=== PATIENT | male | born 1965 | race Caucasian/White ===

== ENCOUNTER 2017-04-28 07:58 | Day surgery (SDC) | payer OTHER ==
[2017-04-27 11:12] VITALS: BMI 28.1
[2017-04-28] MEDS ORDERED: PROPOFOL 20 ML ONE ×2 (08:32)
[2017-04-28 09:08] VITALS: TEMP 98.3
[2017-04-28 10:03] VITALS: BP 131/90; PULSE 87
--- NOTE | 2017-05-01 13:55 | PATH ---
Surgical Pathology Report Patient Name: [facility]. Rec. #: [id number] /Age/Gender: 1965 (Age: 51) / M Account: [id number] Location: U-ENDOSCOPY Taken: 04/28/2017 Received: 04/28/2017 Reported: 05/01/2017 Physicians: Trang Ware M.D. Specimen(s) Received A: BX 2ND PORTION DUODENUM AND BULB B: BX GASTRIC BODY AND ANTRUM C: BX ESOPHAGUS Clinical History Preoperative diagnosis: Gastroesophageal reflux, screening malignant neoplasm, family history of colon polyps,, abdominal pain Postoperative diagnosis: GERD, gastritis Final Diagnosis A. DUODENUM, SECOND PORTION AND BULB, BIOPSY: DUODENAL MUCOSA WITH NO PATHOLOGIC CHANGES. NO HISTOLOGIC EVIDENCE OF GLUTEN SENSITIVE ENTEROPATHY (CELIAC SPRUE) IDENTIFIED. B. STOMACH, BODY AND ANTRUM, BIOPSY: GASTRIC MUCOSA WITH FOCAL MILD FOVEOLAR HYPERPLASIA. IMMUNOSTAIN FOR H. PYLORI IS NEGATIVE. C. ESOPHAGUS, BIOPSY: SQUAMOUS MUCOSA WITH PAPILLOMATOSIS SUGGESTIVE OF REFLUX ESOPHAGITIS. NO INTESTINAL METAPLASIA IDENTIFIED (NO REYES'S IDENTIFIED). NO EOSINOPHILIC ESOPHAGITIS IDENTIFIED. Electronically Signed Shahbaz Fountain M.D. Gross Description A. Received in formalin, labeled "biopsy second portion of duodenum and bulb" are 2 kahn, irregular portions of soft tissue measuring 0.4 and 0.5 cm. in greatest dimension. The specimens are submitted in toto in one cassette. B. Received in formalin, labeled "biopsy gastric body and antrum" are 5 kahn, irregular portions of soft tissue ranging from 0.1-0.5 cm. in greatest dimension. The specimens are submitted in toto in one cassette. C. Received in formalin, labeled "biopsy esophagus" are 3 kahn, irregular portions of soft tissue ranging from 0.1-0.3 cm. in greatest dimension. The specimens are submitted in toto in one cassette. 04/28/201704/28/2017
== END 2017-04-28 10:05 | disposition home or self-care (01) ==
LOC: JASU-ENDO 07:58
PROVIDERS: ATTEND Internal Medicine Gastroenterology
PROC: 0DB98ZX Excision of Duodenum, Via Natural or Artificial Opening Endoscopic, Diagnostic (ICD-10-PCS; 2017-04-28)
PROC: 0DB68ZX Excision of Stomach, Via Natural or Artificial Opening Endoscopic, Diagnostic (ICD-10-PCS; 2017-04-28)
PROC: 0DB28ZX Excision of Middle Esophagus, Via Natural or Artificial Opening Endoscopic, Diagnostic (ICD-10-PCS; 2017-04-28)
PROC: 0DB38ZX Excision of Lower Esophagus, Via Natural or Artificial Opening Endoscopic, Diagnostic (ICD-10-PCS; 2017-04-28)
PROC: 0DJD8ZZ Inspection of Lower Intestinal Tract, Via Natural or Artificial Opening Endoscopic (ICD-10-PCS; principal; 2017-04-28 09:00)
DX: Z12.11 Encounter for screening for malignant neoplasm of colon (principal); Z83.71 Family history of colonic polyps; K21.0 Gastro-esophageal reflux disease with esophagitis
CPT/HCPCS: 43239; G0105; 88305-TC; 88342-TC

== ENCOUNTER 2017-09-08 14:21 | Inpatient (IN) | payer OTHER ==
--- NOTE | 2017-09-08 14:41 | PDOC ---
Rapid Medical Evaluation Time Seen by Provider: 09/08/17 14:36 Medical Evaluation: Allergies Allergy/AdvReac Type Severity Reaction Status Date / Time No Known Allergies Allergy Verified 04/21/15 22:47 09/08/17 14:36 Pt. is a 52 y/o with PMH of gout and gastritis, who presents to the ED with cellulitis to his L shoulder neck, chest and back. Pt states that he initially had cellulitits to the area after pey[place] poison deb. Pt states he had been treated with out patient abx from [facility] and Dr. Orantes. After stopping the abx the rash reappeared and grew in size. Saw his PCP Dr. Navas today and was told he needs to be admitted. Exam: Ambulatory, AAOx3. Cellulitic area to the L shoulder, L neck, chest and upper back. Orders: Labs, Urine, EKG, CXR Pt to proceed to ED for further evaluation Discharge Disposition - Diagnosis Cellulitis - Referrals Referrals: Tootie Navas MD [Primary Care Provider] - - Patient Instructions - Post Discharge Activity
[2017-09-08] MEDS ORDERED: SODIUM PHOSPHATE/NA BIPHOS 133 ML ENEMA PR ONE (14:58)
[2017-09-08] MEDS ORDERED: PIPERACILLIN/TAZOB 3.375 GM 3.375 GM in DEXTROSE 5%-WATER - 50 ML IVPB ONE (15:02)
--- NOTE | 2017-09-08 15:21 | PDOC ---
History of Present Illness - General Chief Complaint: Wound Stated Complaint: PCP ADMIT/CELLUITIS Time Seen by Provider: 09/08/17 14:36 History Source: Patient Exam Limitations: No Limitations - History of Present Illness Initial Comments: 09/08/17 16:52 52 y/o with PMH of gout and gastritis, who presents to the ED with cellulitis to his L shoulder neck, chest and back. Patient came in contact with poison deb one week ago. Started on bactrim at Urgent care , next day seen at [place] was added one dose of Rocephin and d/c with Keflex. During course of abx redness and pain went away but reappeared afterwards even large in size this morning. Followed by Dr. Orantes. Saw his PCP Dr. Navas today and was told he needs to be admitted. Past History - Past Medical History Allergies/Adverse Reactions: Allergies Allergy/AdvReac Type Severity Reaction Status Date / Time No Known Allergies Allergy Verified 09/08/17 14:36 Home Medications: Ambulatory Orders Allopurinol [Zyloprim -] 200 mg PO DAILY 04/27/17 Mag Carb/Aluminum Hydrox/Algin [Gaviscon Liquid] 15 - 30 ml PO Q6H PRN #355 oz 04/28/17 Pantoprazole Sodium [Protonix] 40 mg PO HS #1 tablet. 04/28/17 Pantoprazole Sodium [Protonix] 40 mg PO HS #90 tablet. 04/28/17 COPD: No Other medical history: gastritis - Surgical History Orthopedic Surgery: (LUMBAR LAMINECTOMY) - Immunization History TDAP Vaccination: (unknown) - Suicide/Smoking/Psychosocial Hx Smoking History: Never smoked Have you smoked in the past 12 months: No Hx Alcohol Use: No Drug/Substance Use Hx: No Substance Use Type: None Hx Substance Use Treatment: No Review of Systems - Review of Systems Able to Perform ROS?: Yes Is the patient limited Indonesian proficient: No Constitutional: No: Symptoms Reported, Chills, Diaphoresis HEENTM: No: Symptoms Reported Respiratory: No: Symptoms reported Cardiac (ROS): No: Symptoms Reported ABD/GI: No: Symptoms Reported : No: Symptoms Reported Musculoskeletal: No: Symptoms Reported Integumentary: Yes: See HPI Neurological: No: Symptoms reported *Physical Exam - Vital Signs Last Vital Signs Temp Pulse Resp BP Pulse Ox 99.9 F H 92 H 16 134/85 99 09/08/17 14:36 09/08/17 14:36 09/08/17 14:36 09/08/17 14:36 09/08/17 14:36 - Physical Exam General Appearance: Yes: Nourished, Appropriately Dressed. No: Apparent Distress HEENT: positive: EOMI, TALISHA, Normal ENT Inspection Neck: positive: Other (erythematous rash 25.5x17.5cm over left neck, shoulder) Respiratory/Chest: positive: Lungs Clear, Normal Breath Sounds. negative: Chest Tender, Respiratory Distress Cardiovascular: positive: Regular Rhythm, Regular Rate, S1, S2 Gastrointestinal/Abdominal: positive: Normal Bowel Sounds, Flat, Soft. negative : Tender Male Genitalia: positive: normal genitalia, normal prostate Musculoskeletal: positive: Normal Inspection. negative: CVA Tenderness Integumentary: positive: Normal Color, Dry, Warm, Other (erythematous tender cellulitis rash 25.5x17.5cm over left neck, shoulder with linear scarring in the middle ) Neurologic: positive: Fully Oriented, Alert, Normal Mood/Affect, Normal Response , Motor Strength 5/5 ED Treatment Course - LABORATORY CBC & Chemistry Diagram: 09/08/17 15:20 09/08/17 15:20 Medical Decision Making - Medical Decision Making 09/08/17 17:04 Admission orderes in, started patient on Zosyn per Dr. Orantes. Admitted to *DC/Admit/Observation/Transfer Diagnosis at time of Disposition: Cellulitis - Referrals - Patient Instructions - Post Discharge Activity
[2017-09-08 15:34] LABS: BASO % 0.7 % (0-2.0); EOS % 0.5 % (0-4.5); HEMATOCRIT 43.5 % (35.4-49); HEMOGLOBIN 15.1 GM/dL (11.7-16.9); MCH 31.5 pg (25.7-33.7); MCHC 34.7 g/dl (32.0-35.9); MEAN CELL VOLUME 90.9 fl (80-96); MEAN PLT VOLUME 8.7 fl (7.5-11.1); MONO % 5.9 % (3.8-10.2); NEUT % 71.9 % (42.8-82.8); PLATELET COUNT 279 K/MM3 (134-434); RBC 4.79 M/mm3 (4.00-5.60); RDW 13.3 % (11.9-15.9); WHITE BLOOD COUNT 8.7 K/mm3 (4.0-10.0)
[2017-09-08] MEDS ORDERED: PIPERACILLIN/TAZOB 3.375 GM 3.375 GM/50 ML BAG IVPB ONE (15:35)
[2017-09-08 15:53] LABS: ALK PHOS 55 U/L (45-117); ANION GAP 6 (8-16); BILIRUBIN,TOTAL 0.5 mg/dL (0.2-1.0); BLOOD UREA NITROGEN 15 mg/dL (7-18); CALCIUM 9.3 mg/dL (8.5-10.1); CHLORIDE 107 mmol/L (98-107); CO2 29 mmol/L (21-32); CREATININE 1.2 mg/dL (0.7-1.3); GLUCOSE,RANDOM 88 mg/dL (74-106); POTASSIUM 3.9 mmol/L (3.5-5.1); SGOT/AST 15 U/L (15-37); SGPT/ALT 25 U/L (12-78); SODIUM 142 mmol/L (136-145); TOT PROT 7.3 g/dl (6.4-8.2)
[2017-09-08 15:55] LABS: INR 1.12 (0.82-1.09); PROTHROMBIN TIME (PATIENT) 12.6 SEC (9.7-13.0)
--- NOTE | 2017-09-08 16:48 | PDOC ---
Attending Attestation - HPI HPI: 09/08/17 16:50 The patient is a 52 year old male, with a significant past medical history of, who presents to the emergency department with cellulitis to left neck since poisen deb exposure last week. He states the area is painful. He states he was seen at urgent care where he was diagnosed with cellulitis and started on antibiotics. He states he was then seen in a different ED where his antibiotics was changed. He states he noticed complete resolution of the cellulitis with taking the course of antibiotics, however, states it returned once stopping. The patient denies chest pain, shortness of breath, headache and dizziness. The patient denies fever, chills, nausea, vomit, diarrhea and constipation. The patient denies dysuria, frequency, urgency and hematuria. - Physicial Exam PE: 09/08/17 16:51 ROS: A complete review of 10 out of 10 review of systems is taken and is negative apart from what is previously mentioned below and in the HPI. Vitals: Triage vital signs reviewed General Appearance: No acute distress, well nourished, well developed Head: Atraumatic Eyes: Pupils equal reactive round, extraocular movement intact Ears: TM's normal bilaterally Nose: Nares patent bilaterally; no nasal congestion Throat: Posterior oropharynx without erythema, mucous membranes moist Neck: Supple; No nuchal rigidity Chest Wall: Nontender Cardiac: Regular rate and rhythm, no murmurs, no rubs, no gallops Lungs: Clear to auscultation bilateral, good air movement bilaterally Abdomen: Soft, nondistended, normal bowel sounds, nontender to palpation Genitourinary: Rectal: Exam deferred Extremities: Full range of motion to all extremities, no cyanosis, clubbing, or edema Skin: +large 15cm cellulitis extending from left shoulder to left neck with area of poison deb in the middle. Warm and dry, no lesions, Neuro: AOX3; Cranial Nerves 2-12 grossly intact, Strength intact to all extremities, Sensation intact to all extremities, gait normal Psych: Normal mood, normal affect - Medical Decision Making 09/08/17 16:53 Documentation prepared by Zeinab Patten, acting as certified medical technician assistant for Mohit Baptiste MD <Zeinab Patten - Last Filed: 09/08/17 16:50> - Resident Resident Name: Joshua Meade - ED Attending Attestation I have performed the following: I have examined & evaluated the patient, The case was reviewed & discussed with the resident, I agree w/resident's findings & plan, Exceptions are as noted - Medical Decision Making Patient sent to emergency department for IV antibiotics Infectious disease has been consult and recommends Zosyn We'll admit to medicine for further management and antibiotic coverage for superinfected poison deb <Mohit Baptiste - Last Filed: 09/08/17 16:54>
[2017-09-08 17:43] VITALS: BMI 30.4
[2017-09-08] MEDS ORDERED: ACETAMINOPHEN 325 MG TABLET (FP) PO PRN (20:59)
[2017-09-08] MEDS ORDERED: traMADol HCL 50 MG TABLET PO PRN (21:26)
[2017-09-08] MEDS: PANTOPRAZOLE 40 MG TABLET (FP) PO SCH (21:46)
--- NOTE | 2017-09-08 22:49 | CON.ID ---
Consult Consult Specialty:: infectious diseases Referred by:: Dr.Pushpinder osborne Reason for Consultation:: cellulitis of the neck - History of Present Illness Chief Complaint: fever and cellulitits of the neck History of Present Illness: 52 y/o with PMH of gout and gastritis, who presents to the ED with cellulitis to his L shoulder neck, chest and back. Pt states that he initially had cellulitits to the area after [place] poison deb.patient was seen in urgent care and initially treated with bactrim and steroids. intially patient became alright then again started having fevers and redness and went to [facility] and was treated with couple of doses of iv abx and then send home next day on keflex patient now comes here with cellulitis of the left side of the neck extending to a wide area and also with running fevers. patient has failed outpatient therapy and his condition has continued to worsen He has known history of gout and gastritis and is on allopurinol and protonix - History Source History Provided By: Patient, Family Member Limitations to Obtaining History: No Limitations - Alcohol/Substance Use Hx Alcohol Use: No - Smoking History Smoking history: Never smoked Have you smoked in the past 12 months: No Home Medications - Allergies Allergies/Adverse Reactions: Allergies Allergy/AdvReac Type Severity Reaction Status Date / Time No Known Allergies Allergy Verified 09/08/17 14:36 - Home Medications Home Medications: Ambulatory Orders Allopurinol [Zyloprim -] 200 mg PO DAILY 04/27/17 Mag Carb/Aluminum Hydrox/Algin [Gaviscon Liquid] 15 - 30 ml PO Q6H PRN #355 oz 04/28/17 Pantoprazole Sodium [Protonix] 40 mg PO HS #1 tablet. 04/28/17 Pantoprazole Sodium [Protonix] 40 mg PO HS #90 tablet. 04/28/17 Review of Systems - Review of Systems Constitutional: reports: Fever Eyes: reports: No Symptoms HENT: reports: No Symptoms Neck: reports: Other (cellulitits of the left side of the neck) Cardiovascular: reports: No Symptoms Respiratory: reports: No Symptoms Gastrointestinal: reports: No Symptoms Genitourinary: reports: No Symptoms Musculoskeletal: reports: No Symptoms Integumentary: reports: Erythema Neurological: reports: No Symptoms Endocrine: reports: No Symptoms Hematology/Lymphatic: reports: No Symptoms Psychiatric: reports: No Symptoms Physical Exam Vital Signs: Vital Signs Temperature 98.9 F 09/08/17 17:30 Pulse Rate 70 09/08/17 17:30 Respiratory Rate 18 09/08/17 17:30 Blood Pressure 124/91 09/08/17 17:30 O2 Sat by Pulse Oximetry (%) 100 09/08/17 17:30 Constitutional: Yes: No Distress, Calm Eyes: Yes: Conjunctiva Clear HENT: Yes: Atraumatic, Normocephalic Neck: Yes: Supple, Trachea Midline, Other (cellulitits of the left side of the neck) Cardiovascular: Yes: Regular Rate and Rhythm Respiratory: Yes: Regular, CTA Bilaterally Gastrointestinal: Yes: Normal Bowel Sounds, Soft Musculoskeletal: Yes: WNL Extremities: Yes: WNL Integumentary: Yes: Erythema, Other Neurological: Yes: Alert, Oriented Psychiatric: Yes: Alert, Oriented Labs: CBC, BMP 09/08/17 15:20 09/08/17 15:20 Imaging - Results Chest X-ray: Image Reviewed (report awaited) Assessment/Plan patient coming with cellulitis of the neck and infection which has not resolved on oral abx and now spreading to quite a wide area cellulitis of the neck fever pain plan will start patient on zosyn continue current mgmt will see how the cellulittis changes rest as per the team continue his meds
[2017-09-09] MEDS ORDERED: PIPERACILLIN/TAZOBACTAM 3.375 GM VIAL IVPB ONE ×3 (02:05→18:32)
[2017-09-09] MEDS ORDERED: DEXTROSE 5%-WATER - 50 ML IVPB ONE ×3 (02:05→18:32)
[2017-09-09] MEDS: PIPERACILLIN/TAZOB 3.375 GM 3.375 GM in DEXTROSE 5%-WATER - 50 ML IVPB SCH ×3 (02:13→18:37)
[2017-09-09 08:01] LABS: BASO % 0.4 % (0-2.0); EOS % 1.5 % (0-4.5); HEMOGLOBIN 14.1 GM/dL (11.7-16.9); LYMPH % 18.7 % (8-40); MCHC 35.3 g/dl (32.0-35.9); MEAN CELL VOLUME 90.5 fl (80-96); MEAN PLT VOLUME 8.9 fl (7.5-11.1); MONO % 5.9 % (3.8-10.2); NEUT % 73.5 % (42.8-82.8); PLATELET COUNT 224 K/MM3 (134-434); RBC 4.42 M/mm3 (4.00-5.60); RDW 13.3 % (11.9-15.9); WHITE BLOOD COUNT 7.7 K/mm3 (4.0-10.0)
[2017-09-09 09:20] LABS: ALBUMIN 3.6 g/dl (3.4-5.0); ANION GAP 7 (8-16); BLOOD UREA NITROGEN 14 mg/dL (7-18); CALCIUM 8.8 mg/dL (8.5-10.1); CHLORIDE 108 mmol/L (98-107); CO2 28 mmol/L (21-32); CREATININE 1.1 mg/dL (0.7-1.3); GLUCOSE,RANDOM 89 mg/dL (74-106); MAGNESIUM 2.1 mg/dL (1.8-2.4); POTASSIUM 4.3 mmol/L (3.5-5.1); SGOT/AST 12 U/L (15-37); SODIUM 143 mmol/L (136-145)
[2017-09-09 09:23] LABS: ALK PHOS 51 U/L (45-117); BILIRUBIN,TOTAL 0.7 mg/dL (0.2-1.0); SGPT/ALT 22 U/L (12-78); TOT PROT 6.3 g/dl (6.4-8.2)
[2017-09-09] MEDS: ALLOPURINOL 100 MG TABLET (FP) PO SCH (09:48)
--- NOTE | 2017-09-09 10:10 | EKG ---
Test Reason : Blood Pressure : / mmHG Vent. Rate : 080 BPM Atrial Rate : 080 BPM P-R Int : 148 ms QRS Dur : 088 ms QT Int : 370 ms P-R-T Axes : 051 015 029 degrees QTc Int : 426 ms NORMAL SINUS RHYTHM NORMAL ECG WHEN COMPARED WITH ECG OF 21-JUL-1998 08:51, NO SIGNIFICANT CHANGE WAS FOUND Confirmed by BLAS ORTEZ MD ([id number]) on 09/09/2017 10:10:31 AM Referred By: Confirmed By:BLAS ORTEZ MD
--- NOTE | 2017-09-09 11:00 | PN ---
Progress Note, Physician - Current Medication List Current Medications: Active Medications Acetaminophen (Tylenol -) 650 mg PO Q6H PRN PRN Reason: HEADACHE Last Admin: 09/08/17 21:16 Dose: 650 mg Allopurinol (Zyloprim -) 200 mg PO DAILY [facility] Last Admin: 09/09/17 09:48 Dose: 200 mg Piperacillin Sod/Tazobactam (Sod 3.375 gm/ Dextrose) 50 mls @ 100 mls/hr IVPB Q8H-IV LYNN; Protocol Last Admin: 09/09/17 09:49 Dose: 100 mls/hr Pantoprazole Sodium (Protonix -) 40 mg PO HS LYNN Last Admin: 09/08/17 21:46 Dose: 40 mg Tramadol HCl (Ultram -) 50 mg PO Q8H PRN PRN Reason: PAIN LEVEL 7 - 10 - Objective Vital Signs: Vital Signs Temperature 98.1 F 09/09/17 06:55 Pulse Rate 74 09/09/17 06:55 Respiratory Rate 17 09/09/17 06:55 Blood Pressure 110/66 09/09/17 06:55 O2 Sat by Pulse Oximetry (%) 94 L 09/08/17 21:00 Labs: CBC, BMP 09/09/17 06:50 09/09/17 06:50 INR, PTT INR 1.12 (0.82-1.09) 09/08/17 15:20
--- NOTE | 2017-09-09 11:00 | HP ---
Admitting History and Physical - Primary Care Physician PCP: Tootie Navas - Admission Chief Complaint: left neck cellulitis History of Present Illness: - HPI HPI: 09/08/17 16:50 The patient is a 52 year old male, with a significant past medical history of, who presents to the emergency department with cellulitis to left neck since poisen deb exposure last week. He states the area is painful. He states he was seen at urgent care where he was diagnosed with cellulitis and started on antibiotics. He states he was then seen in a different ED where his antibiotics was changed. He states he noticed complete resolution of the cellulitis with taking the course of antibiotics, however, states it returned once stopping. The patient denies chest pain, shortness of breath, headache and dizziness. The patient denies fever, chills, nausea, vomit, diarrhea and constipation. The patient denies dysuria, frequency, urgency and hematuria. Pt examined by me in the floors- He initially had a poison deb rash on the left side of neck , which worsened and became erythematous with scab formation- went to Urgent care and was started on PO Bactrim and prednisone. After completion of antibiotics, it got better but again became erythematous and painful- went to [facility] - received IV antibiotics and dc the next day home with PO Keflex- he came here when the pain and redness persisted. History Source: Patient Limitations to Obtaining History: No Limitations - Past Medical History Rheumatology: Yes: Gout - Smoking History Smoking history: Never smoked Have you smoked in the past 12 months: No - Alcohol/Substance Use Hx Alcohol Use: No Home Medications - Allergies Allergies/Adverse Reactions: Allergies Allergy/AdvReac Type Severity Reaction Status Date / Time No Known Allergies Allergy Verified 09/08/17 14:36 - Home Medications Home Medications: Ambulatory Orders Allopurinol [Zyloprim -] 200 mg PO DAILY 04/27/17 Mag Carb/Aluminum Hydrox/Algin [Gaviscon Liquid] 15 - 30 ml PO Q6H PRN #355 oz 04/28/17 Pantoprazole Sodium [Protonix] 40 mg PO HS #1 tablet. 04/28/17 Pantoprazole Sodium [Protonix] 40 mg PO HS #90 tablet. 04/28/17 Review of Systems - Review of Systems Constitutional: denies: Chills Neck: reports: Pain on Movement Physical Examination Vital Signs: Vital Signs Temperature 98.1 F 09/09/17 06:55 Pulse Rate 74 09/09/17 06:55 Respiratory Rate 17 09/09/17 06:55 Blood Pressure 110/66 09/09/17 06:55 O2 Sat by Pulse Oximetry (%) 94 L 09/08/17 21:00 Constitutional: Yes: No Distress, Calm Neck: Yes: Lymphadenopathy, Other (band like erythema on the left side of neck , no scab) Cardiovascular: Yes: Regular Rate and Rhythm Respiratory: Yes: CTA Bilaterally Gastrointestinal: Yes: Normal Bowel Sounds, Soft. No: Tenderness Edema: No Labs: CBC, BMP 09/09/17 06:50 09/09/17 06:50 Imaging - Results Chest X-ray: Image Reviewed (clear) EKG: Image Reviewed (NSR) Problem List - Problems (1) Neck pain Code(s): M54.2 - CERVICALGIA (2) Cellulitis Code(s): L03.90 - CELLULITIS, UNSPECIFIED Assessment/Plan PLAN ID lior appreciated Spoke with ID Continue with iv antibiotics Pt's showed me a couple of photos of how his rash looked like- marked improvement- Initially was a large area of cellulitis-- extending to below collar bone- now it is band like. pain control DVT prophylaxis
[2017-09-09] MEDS: LACTOBACILLUS ACIDOPHILUS 1 TABLET PO SCH (13:29)
--- NOTE | 2017-09-09 17:50 | PN ---
Progress Note, Physician History of Present Illness: Pt seen and examined. States he feels slightly better. Less Lt neck/chest erythema. Tmax 99.1F. No other specific complaints. - Current Medication List Current Medications: Active Medications Acetaminophen (Tylenol -) 650 mg PO Q6H PRN PRN Reason: HEADACHE Last Admin: 09/08/17 21:16 Dose: 650 mg Allopurinol (Zyloprim -) 200 mg PO DAILY [facility] Last Admin: 09/09/17 09:48 Dose: 200 mg Enoxaparin Sodium (Lovenox -) 40 mg SQ DAILY LYNN Piperacillin Sod/Tazobactam (Sod 3.375 gm/ Dextrose) 50 mls @ 100 mls/hr IVPB Q8H-IV L[facility]; Protocol Last Admin: 09/09/17 09:49 Dose: 100 mls/hr Lactobacillus Acidophilus (Bacid -) 1 tab PO DAILY LYNN Last Admin: 09/09/17 13:29 Dose: 1 tab Pantoprazole Sodium (Protonix -) 40 mg PO HS LYNN Last Admin: 09/08/17 21:46 Dose: 40 mg Tramadol HCl (Ultram -) 50 mg PO Q8H PRN PRN Reason: PAIN LEVEL 7 - 10 - Objective Vital Signs: Vital Signs Temperature 99.1 F 09/09/17 13:32 Pulse Rate 78 09/09/17 13:32 Respiratory Rate 18 09/09/17 13:32 Blood Pressure 113/64 09/09/17 13:32 O2 Sat by Pulse Oximetry (%) 96 09/09/17 09:00 Constitutional: Yes: No Distress, Calm Cardiovascular: Yes: Regular Rate and Rhythm Respiratory: Yes: Regular Gastrointestinal: Yes: Normal Bowel Sounds, Soft Genitourinary: Yes: WNL Extremities: Yes: WNL Integumentary: Yes: Other (Lt chest/neck erythema - less extensive, no pain) Labs: CBC, BMP 09/09/17 06:50 09/09/17 06:50 INR, PTT INR 1.12 (0.82-1.09) 09/08/17 15:20 Problem List - Problems (1) Cellulitis Code(s): L03.90 - CELLULITIS, UNSPECIFIED Assessment/Plan 52 y/o with PMH of gout and gastritis presenting with Lt chest/neck/back erythema. Was treated with antibiotics and steroids for cellulitis as outpt after doses of IV antibiotics in the hospital. Symptoms developed after developing poison deb rash. Lt neck/chest/back cellulitis Low grade fever -- continue Zosyn for now clinically improving monitor temperatures
[2017-09-09] MEDS: PANTOPRAZOLE 40 MG TABLET (FP) PO SCH (22:09)
[2017-09-10] MEDS ORDERED: PIPERACILLIN/TAZOBACTAM 3.375 GM VIAL IVPB ONE ×3 (02:51→17:45)
[2017-09-10] MEDS ORDERED: DEXTROSE 5%-WATER - 50 ML IVPB ONE ×3 (02:51→17:45)
[2017-09-10] MEDS: PIPERACILLIN/TAZOB 3.375 GM 3.375 GM in DEXTROSE 5%-WATER - 50 ML IVPB SCH ×3 (02:56→18:05)
[2017-09-10] MEDS: ENOXAPARIN NA (PORCINE) 40 MG/0.4 ML DISP.SYRIN SQ SCH (09:58)
[2017-09-10] MEDS: LACTOBACILLUS ACIDOPHILUS 1 TABLET PO SCH (09:58)
[2017-09-10] MEDS: ALLOPURINOL 100 MG TABLET (FP) PO SCH (09:59)
--- NOTE | 2017-09-10 10:10 | PN ---
Progress Note, Physician Chief Complaint: continues to have pain in neck but is decreased - Current Medication List Current Medications: Active Medications Acetaminophen (Tylenol -) 650 mg PO Q6H PRN PRN Reason: HEADACHE Last Admin: 09/08/17 21:16 Dose: 650 mg Allopurinol (Zyloprim -) 200 mg PO DAILY [facility] Last Admin: 09/10/17 09:59 Dose: 200 mg Enoxaparin Sodium (Lovenox -) 40 mg SQ DAILY [facility] Last Admin: 09/10/17 09:58 Dose: Not Given Piperacillin Sod/Tazobactam (Sod 3.375 gm/ Dextrose) 50 mls @ 100 mls/hr IVPB Q8H-IV L[facility]NN; Protocol Last Admin: 09/10/17 09:57 Dose: 100 mls/hr Lactobacillus Acidophilus (Bacid -) 1 tab PO DAILY [facility] Last Admin: 09/10/17 09:58 Dose: 1 tab Pantoprazole Sodium (Protonix -) 40 mg PO HS LYNN Last Admin: 09/09/17 22:09 Dose: 40 mg Tramadol HCl (Ultram -) 50 mg PO Q8H PRN PRN Reason: PAIN LEVEL 7 - 10 - Objective Vital Signs: Vital Signs Temperature 98.3 F 09/10/17 07:07 Pulse Rate 67 09/10/17 07:07 Respiratory Rate 20 09/10/17 07:07 Blood Pressure 115/69 09/10/17 07:07 O2 Sat by Pulse Oximetry (%) 97 09/09/17 21:00 Constitutional: Yes: No Distress Neck: Yes: Lymphadenopathy (tender+), Other (erythema decreased) Cardiovascular: Yes: Regular Rate and Rhythm Respiratory: Yes: CTA Bilaterally Gastrointestinal: Yes: Normal Bowel Sounds, Soft. No: Tenderness Edema: No Labs: CBC, BMP 09/09/17 06:50 09/09/17 06:50 INR, PTT INR 1.12 (0.82-1.09) 09/08/17 15:20 Problem List - Problems (1) Cellulitis Code(s): L03.90 - CELLULITIS, UNSPECIFIED (2) Neck pain Code(s): M54.2 - CERVICALGIA Assessment/Plan PLAN cultures negative Continue with iv antibiotics will order CT neck as pt continues to have pain, r/o abscess pain control DVT prophylaxis
--- NOTE | 2017-09-10 20:40 | PN ---
Progress Note, Physician History of Present Illness: Pt doing well overall. Still with some pain in Lt upper chest/neck region but feeling well. - Current Medication List Current Medications: Active Medications Acetaminophen (Tylenol -) 650 mg PO Q6H PRN PRN Reason: HEADACHE Last Admin: 09/08/17 21:16 Dose: 650 mg Allopurinol (Zyloprim -) 200 mg PO DAILY [facility] Last Admin: 09/10/17 09:59 Dose: 200 mg Enoxaparin Sodium (Lovenox -) 40 mg SQ DAILY [facility] Last Admin: 09/10/17 09:58 Dose: Not Given Piperacillin Sod/Tazobactam (Sod 3.375 gm/ Dextrose) 50 mls @ 100 mls/hr IVPB Q8H-IV L[facility]NN; Protocol Last Admin: 09/10/17 18:05 Dose: 100 mls/hr Lactobacillus Acidophilus (Bacid -) 1 tab PO DAILY [facility] Last Admin: 09/10/17 09:58 Dose: 1 tab Pantoprazole Sodium (Protonix -) 40 mg PO HS [facility] Last Admin: 09/09/17 22:09 Dose: 40 mg Tramadol HCl (Ultram -) 50 mg PO Q8H PRN PRN Reason: PAIN LEVEL 7 - 10 - Objective Vital Signs: Vital Signs Temperature 98.1 F 09/10/17 18:00 Pulse Rate 67 09/10/17 18:00 Respiratory Rate 18 09/10/17 18:00 Blood Pressure 124/68 09/10/17 18:00 O2 Sat by Pulse Oximetry (%) 96 09/10/17 09:00 Constitutional: Yes: No Distress, Calm Cardiovascular: Yes: Regular Rate and Rhythm Gastrointestinal: Yes: Normal Bowel Sounds, Soft Genitourinary: Yes: WNL Extremities: Yes: WNL Integumentary: Yes: Erythema (erythema in Lt neck/upper chest improving, still with some pain) Neurological: Yes: Alert, Oriented Labs: CBC, BMP 09/09/17 06:50 09/09/17 06:50 INR, PTT INR 1.12 (0.82-1.09) 09/08/17 15:20 Problem List - Problems (1) Cellulitis Code(s): L03.90 - CELLULITIS, UNSPECIFIED Assessment/Plan 52 y/o with PMH of gout and gastritis presenting with Lt chest/neck/back erythema. Was treated with antibiotics and steroids for cellulitis as outpt after doses of IV antibiotics in the hospital. Symptoms developed after developing poison deb rash. Lt neck/chest/back cellulitis Low grade fever --continue antibiotics for now, pt afebrile -- symptoms improving -- still with pain in neck region, CT ordered
[2017-09-10] MEDS: PANTOPRAZOLE 40 MG TABLET (FP) PO SCH (21:13)
[2017-09-11] MEDS ORDERED: DEXTROSE 5%-WATER - 50 ML IVPB ONE ×3 (03:19→18:28)
[2017-09-11] MEDS ORDERED: PIPERACILLIN/TAZOBACTAM 3.375 GM VIAL IVPB ONE ×3 (03:19→18:28)
[2017-09-11] MEDS: PIPERACILLIN/TAZOB 3.375 GM 3.375 GM in DEXTROSE 5%-WATER - 50 ML IVPB SCH ×3 (03:23→18:30)
[2017-09-11 07:21] LABS: BASO % 0.5 % (0-2.0); EOS % 2.5 % (0-4.5); HEMATOCRIT 40.1 % (35.4-49); LYMPH % 31.5 % (8-40); MCH 31.9 pg (25.7-33.7); MEAN CELL VOLUME 91.2 fl (80-96); MEAN PLT VOLUME 8.9 fl (7.5-11.1); MONO % 8.2 % (3.8-10.2); NEUT % 57.3 % (42.8-82.8); PLATELET COUNT 219 K/MM3 (134-434); RDW 13.2 % (11.9-15.9); WHITE BLOOD COUNT 6.6 K/mm3 (4.0-10.0)
[2017-09-11 07:56] LABS: CHLORIDE 106 mmol/L (98-107); SODIUM 139 mmol/L (136-145)
[2017-09-11 08:03] LABS: ALBUMIN 3.5 g/dl (3.4-5.0); ALK PHOS 46 U/L (45-117); ANION GAP 6 (8-16); BILIRUBIN,TOTAL 0.4 mg/dL (0.2-1.0); BLOOD UREA NITROGEN 17 mg/dL (7-18); CO2 27 mmol/L (21-32); CREATININE 1.2 mg/dL (0.7-1.3); GLUCOSE,RANDOM 90 mg/dL (74-106); SGOT/AST 16 U/L (15-37); SGPT/ALT 24 U/L (12-78); TOT PROT 6.4 g/dl (6.4-8.2)
[2017-09-11] MEDS: ALLOPURINOL 100 MG TABLET (FP) PO SCH (09:46)
[2017-09-11] MEDS: ENOXAPARIN NA (PORCINE) 40 MG/0.4 ML DISP.SYRIN SQ SCH (09:46)
[2017-09-11] MEDS: LACTOBACILLUS ACIDOPHILUS 1 TABLET PO SCH (09:46)
--- NOTE | 2017-09-11 10:14 | PN ---
Progress Note (short form) - Note Progress Note: Pt seen/ examined . chart reviewed feels better decreased neck swelling/ redness afebrile Vital Signs Temp 97.8 F 09/11/17 06:00 Pulse 57 L 09/11/17 06:00 Resp 20 09/11/17 06:00 BP 109/68 09/11/17 06:00 Pulse Ox 96 09/10/17 21:00 Intake & Output 09/10/17 09/10/17 09/11/17 11:59 23:59 11:59 Intake Total 50 490 200 Balance 50 490 200 Intake: IVPB 50 Oral 50 490 150 Other: Voiding Method Toilet Toilet Toilet # Unmeasured Voids Void 2 Bowel Movement Yes Active Medications Acetaminophen (Tylenol -) 650 mg PO Q6H PRN PRN Reason: HEADACHE Last Admin: 09/08/17 21:16 Dose: 650 mg Allopurinol (Zyloprim -) 200 mg PO DAILY [facility] Last Admin: 09/11/17 09:46 Dose: 200 mg Enoxaparin Sodium (Lovenox -) 40 mg SQ DAILY [facility] Last Admin: 09/11/17 09:46 Dose: Not Given Piperacillin Sod/Tazobactam (Sod 3.375 gm/ Dextrose) 50 mls @ 100 mls/hr IVPB Q8H-IV [facility]; Protocol Last Admin: 09/11/17 09:45 Dose: 100 mls/hr Lactobacillus Acidophilus (Bacid -) 1 tab PO DAILY [facility] Last Admin: 09/11/17 09:46 Dose: 1 tab Pantoprazole Sodium (Protonix -) 40 mg PO HS [facility] Last Admin: 09/10/17 21:13 Dose: 40 mg Tramadol HCl (Ultram -) 50 mg PO Q8H PRN PRN Reason: PAIN LEVEL 7 - 10 CBC, BMP 09/11/17 06:00 09/11/17 06:00 ct neck- pending Physical. Constitutional: Yes: No Distress Neck: Yes: Lymphadenopathy (tender+), Other (erythema decreased)-- As per pt . Supple Cardiovascular: Yes: Regular Rate and Rhythm Respiratory: Yes: CTA Bilaterally Gastrointestinal: Yes: Normal Bowel Sounds, Soft. No: Tenderness Edema: No Problem List - Problems (1) Cellulitis Code(s): L03.90 - CELLULITIS, UNSPECIFIED (2) Neck pain Code(s): M54.2 - CERVICALGIA Assessment/Plan Better cultures negative Continue with iv antibiotics CT neck pending pain control DVT prophylaxis will follow
[2017-09-11 11:18] LABS: ERYTHROCYTE SEDIMENTATION RATE 12 mm/hr (0-20)
--- NOTE | 2017-09-11 12:56 | PN ---
Progress Note, Physician History of Present Illness: patient improving still with cellulittis but now focally ct scan done will wait for results imaging seen tenderness has improved - Current Medication List Current Medications: Active Medications Acetaminophen (Tylenol -) 650 mg PO Q6H PRN PRN Reason: HEADACHE Last Admin: 09/08/17 21:16 Dose: 650 mg Allopurinol (Zyloprim -) 200 mg PO DAILY [facility] Last Admin: 09/11/17 09:46 Dose: 200 mg Enoxaparin Sodium (Lovenox -) 40 mg SQ DAILY [facility] Last Admin: 09/11/17 09:46 Dose: Not Given Piperacillin Sod/Tazobactam (Sod 3.375 gm/ Dextrose) 50 mls @ 100 mls/hr IVPB Q8H-IV [facility]; Protocol Last Admin: 09/11/17 09:45 Dose: 100 mls/hr Lactobacillus Acidophilus (Bacid -) 1 tab PO DAILY [facility] Last Admin: 09/11/17 09:46 Dose: 1 tab Pantoprazole Sodium (Protonix -) 40 mg PO HS [facility] Last Admin: 09/10/17 21:13 Dose: 40 mg Tramadol HCl (Ultram -) 50 mg PO Q8H PRN PRN Reason: PAIN LEVEL 7 - 10 - Objective Vital Signs: Vital Signs Temperature 97.8 F 09/11/17 06:00 Pulse Rate 57 L 09/11/17 06:00 Respiratory Rate 20 09/11/17 06:00 Blood Pressure 109/68 09/11/17 06:00 O2 Sat by Pulse Oximetry (%) 96 09/10/17 21:00 Constitutional: Yes: No Distress, Calm Neck: Yes: Other (cellulitits of the left side of the neck) Cardiovascular: Yes: Regular Rate and Rhythm Respiratory: Yes: Regular, CTA Bilaterally Gastrointestinal: Yes: Normal Bowel Sounds, Soft Musculoskeletal: Yes: WNL Extremities: Yes: WNL Integumentary: Yes: Erythema (left skin) Neurological: Yes: Alert, Oriented Psychiatric: Yes: Alert, Oriented Labs: CBC, BMP 09/11/17 06:00 09/11/17 06:00 INR, PTT INR 1.12 (0.82-1.09) 09/08/17 15:20 Assessment/Plan cellulitis of the neck fever pain plan continue abx await for ct result rest as per the team patient improving still not resolving completely
[2017-09-11] MEDS: PANTOPRAZOLE 40 MG TABLET (FP) PO SCH (21:28)
[2017-09-12] MEDS ORDERED: PIPERACILLIN/TAZOBACTAM 3.375 GM VIAL IVPB ONE ×3 (00:52→16:32)
[2017-09-12] MEDS ORDERED: DEXTROSE 5%-WATER - 50 ML IVPB ONE ×3 (00:52→16:32)
[2017-09-12] MEDS: PIPERACILLIN/TAZOB 3.375 GM 3.375 GM in DEXTROSE 5%-WATER - 50 ML IVPB SCH ×3 (02:17→18:11)
[2017-09-12] MEDS: LACTOBACILLUS ACIDOPHILUS 1 TABLET PO SCH (09:58)
[2017-09-12] MEDS: ALLOPURINOL 100 MG TABLET (FP) PO SCH (09:59)
[2017-09-12] MEDS: ENOXAPARIN NA (PORCINE) 40 MG/0.4 ML DISP.SYRIN SQ SCH (09:59)
--- NOTE | 2017-09-12 11:33 | PN ---
Progress Note, Physician Chief Complaint: has decreased pain in neck feels well - Current Medication List Current Medications: Active Medications Acetaminophen (Tylenol -) 650 mg PO Q6H PRN PRN Reason: HEADACHE Last Admin: 09/08/17 21:16 Dose: 650 mg Allopurinol (Zyloprim -) 200 mg PO DAILY [facility] Last Admin: 09/12/17 09:59 Dose: 200 mg Enoxaparin Sodium (Lovenox -) 40 mg SQ DAILY [facility] Last Admin: 09/12/17 09:59 Dose: Not Given Piperacillin Sod/Tazobactam (Sod 3.375 gm/ Dextrose) 50 mls @ 100 mls/hr IVPB Q8H-IV [facility]; Protocol Last Admin: 09/12/17 09:58 Dose: 100 mls/hr Lactobacillus Acidophilus (Bacid -) 1 tab PO DAILY [facility] Last Admin: 09/12/17 09:58 Dose: 1 tab Pantoprazole Sodium (Protonix -) 40 mg PO HS [facility] Last Admin: 09/11/17 21:28 Dose: 40 mg - Objective Vital Signs: Vital Signs Temperature 98.4 F 09/12/17 10:00 Pulse Rate 78 09/12/17 10:00 Respiratory Rate 18 09/12/17 10:00 Blood Pressure 130/76 09/12/17 10:00 O2 Sat by Pulse Oximetry (%) 96 09/11/17 21:31 Constitutional: Yes: No Distress, Calm Neck: Yes: Supple, Other (band like erythema on lowe left side of neck) Cardiovascular: Yes: Regular Rate and Rhythm Respiratory: Yes: CTA Bilaterally Labs: CBC, BMP 09/11/17 06:00 09/11/17 06:00 INR, PTT INR 1.12 (0.82-1.09) 09/08/17 15:20 Problem List - Problems (1) Cellulitis Code(s): L03.90 - CELLULITIS, UNSPECIFIED (2) Neck pain Code(s): M54.2 - CERVICALGIA Assessment/Plan PLAN cultures negative Continue with iv antibiotics CT neck - no abscess pain control DVT prophylaxis
--- NOTE | 2017-09-12 13:27 | PN ---
Progress Note, Physician - Current Medication List Current Medications: Active Medications Acetaminophen (Tylenol -) 650 mg PO Q6H PRN PRN Reason: HEADACHE Last Admin: 09/08/17 21:16 Dose: 650 mg Allopurinol (Zyloprim -) 200 mg PO DAILY [facility] Last Admin: 09/12/17 09:59 Dose: 200 mg Enoxaparin Sodium (Lovenox -) 40 mg SQ DAILY [facility] Last Admin: 09/12/17 09:59 Dose: Not Given Piperacillin Sod/Tazobactam (Sod 3.375 gm/ Dextrose) 50 mls @ 100 mls/hr IVPB Q8H-IV [facility]; Protocol Last Admin: 09/12/17 09:58 Dose: 100 mls/hr Lactobacillus Acidophilus (Bacid -) 1 tab PO DAILY [facility] Last Admin: 09/12/17 09:58 Dose: 1 tab Pantoprazole Sodium (Protonix -) 40 mg PO HS [facility] Last Admin: 09/11/17 21:28 Dose: 40 mg - Objective Vital Signs: Vital Signs Temperature 98.4 F 09/12/17 10:00 Pulse Rate 78 09/12/17 10:00 Respiratory Rate 18 09/12/17 10:00 Blood Pressure 130/76 09/12/17 10:00 O2 Sat by Pulse Oximetry (%) 96 09/11/17 21:31 Labs: CBC, BMP 09/11/17 06:00 09/11/17 06:00 INR, PTT INR 1.12 (0.82-1.09) 09/08/17 15:20
[2017-09-12] MEDS: PANTOPRAZOLE 40 MG TABLET (FP) PO SCH (22:02)
[2017-09-13] MEDS ORDERED: PIPERACILLIN/TAZOBACTAM 3.375 GM VIAL IVPB ONE ×3 (00:29→17:14)
[2017-09-13] MEDS ORDERED: DEXTROSE 5%-WATER - 50 ML IVPB ONE ×3 (00:30→17:14)
[2017-09-13] MEDS: PIPERACILLIN/TAZOB 3.375 GM 3.375 GM in DEXTROSE 5%-WATER - 50 ML IVPB SCH ×3 (01:38→18:15)
[2017-09-13] MEDS: LACTOBACILLUS ACIDOPHILUS 1 TABLET PO SCH (09:34)
[2017-09-13] MEDS: ALLOPURINOL 100 MG TABLET (FP) PO SCH (09:35)
[2017-09-13] MEDS: ENOXAPARIN NA (PORCINE) 40 MG/0.4 ML DISP.SYRIN SQ SCH (09:35)
--- NOTE | 2017-09-13 11:34 | PN ---
Progress Note, Physician Chief Complaint: has decreased pain in neck feels well able to move his neck without pain - Current Medication List Current Medications: Active Medications Acetaminophen (Tylenol -) 650 mg PO Q6H PRN PRN Reason: HEADACHE Last Admin: 09/08/17 21:16 Dose: 650 mg Allopurinol (Zyloprim -) 200 mg PO DAILY [facility] Last Admin: 09/13/17 09:35 Dose: 200 mg Enoxaparin Sodium (Lovenox -) 40 mg SQ DAILY [facility] Last Admin: 09/13/17 09:35 Dose: Not Given Piperacillin Sod/Tazobactam (Sod 3.375 gm/ Dextrose) 50 mls @ 100 mls/hr IVPB Q8H-IV [facility]; Protocol Last Admin: 09/13/17 09:36 Dose: 100 mls/hr Lactobacillus Acidophilus (Bacid -) 1 tab PO DAILY [facility] Last Admin: 09/13/17 09:34 Dose: 1 tab Pantoprazole Sodium (Protonix -) 40 mg PO HS [facility] Last Admin: 09/12/17 22:02 Dose: 40 mg - Objective Vital Signs: Vital Signs Temperature 98.4 F 09/13/17 09:00 Pulse Rate 72 09/13/17 09:00 Respiratory Rate 18 09/13/17 09:00 Blood Pressure 116/81 09/13/17 09:00 O2 Sat by Pulse Oximetry (%) 99 09/12/17 19:54 Constitutional: Yes: No Distress Neck: Yes: Other (band like erythema+, decreased induration on lef side of neck) Cardiovascular: Yes: Regular Rate and Rhythm Respiratory: Yes: CTA Bilaterally Labs: CBC, BMP 09/11/17 06:00 09/11/17 06:00 INR, PTT INR 1.12 (0.82-1.09) 09/08/17 15:20 Problem List - Problems (1) Cellulitis Code(s): L03.90 - CELLULITIS, UNSPECIFIED (2) Neck pain Code(s): M54.2 - CERVICALGIA Assessment/Plan PLAN cultures negative Continue with iv antibiotics CT neck - no abscess pain control DVT prophylaxis lyme titer pending
--- NOTE | 2017-09-13 12:01 | PN ---
Progress Note, Physician History of Present Illness: continue to improve pain in the neck has improved cellulittis resolving awaiting lymes test - Current Medication List Current Medications: Active Medications Acetaminophen (Tylenol -) 650 mg PO Q6H PRN PRN Reason: HEADACHE Last Admin: 09/08/17 21:16 Dose: 650 mg Allopurinol (Zyloprim -) 200 mg PO DAILY [facility] Last Admin: 09/13/17 09:35 Dose: 200 mg Enoxaparin Sodium (Lovenox -) 40 mg SQ DAILY [facility] Last Admin: 09/13/17 09:35 Dose: Not Given Piperacillin Sod/Tazobactam (Sod 3.375 gm/ Dextrose) 50 mls @ 100 mls/hr IVPB Q8H-IV [facility]; Protocol Last Admin: 09/13/17 09:36 Dose: 100 mls/hr Lactobacillus Acidophilus (Bacid -) 1 tab PO DAILY [facility] Last Admin: 09/13/17 09:34 Dose: 1 tab Pantoprazole Sodium (Protonix -) 40 mg PO HS [facility] Last Admin: 09/12/17 22:02 Dose: 40 mg - Objective Vital Signs: Vital Signs Temperature 98.4 F 09/13/17 09:00 Pulse Rate 72 09/13/17 09:00 Respiratory Rate 18 09/13/17 09:00 Blood Pressure 116/81 09/13/17 09:00 O2 Sat by Pulse Oximetry (%) 99 09/12/17 19:54 Constitutional: Yes: No Distress, Calm Neck: Yes: Other (cellulitis resolving) Cardiovascular: Yes: Regular Rate and Rhythm Respiratory: Yes: Regular, CTA Bilaterally Gastrointestinal: Yes: Normal Bowel Sounds, Soft Musculoskeletal: Yes: WNL Extremities: Yes: WNL Neurological: Yes: Alert, Oriented Psychiatric: Yes: Alert, Oriented Labs: CBC, BMP 09/11/17 06:00 09/11/17 06:00 INR, PTT INR 1.12 (0.82-1.09) 09/08/17 15:20 Assessment/Plan cellulitis of the neck fever pain posion deb Cellulitis Code(s): L03.90 - CELLULITIS, UNSPECIFIED Neck pain Code(s): M54.2 - CERVICALGIA plan continue abx await for serology rest as per the team patient improving resolving
[2017-09-13] MEDS: PANTOPRAZOLE 40 MG TABLET (FP) PO SCH (22:36)
[2017-09-14] MEDS ORDERED: PIPERACILLIN/TAZOBACTAM 3.375 GM VIAL IVPB ONE ×2 (01:04→09:50)
[2017-09-14] MEDS ORDERED: DEXTROSE 5%-WATER - 50 ML IVPB ONE ×2 (01:04→09:50)
[2017-09-14] MEDS: PIPERACILLIN/TAZOB 3.375 GM 3.375 GM in DEXTROSE 5%-WATER - 50 ML IVPB SCH ×2 (01:23→09:57)
[2017-09-14 06:22] VITALS: PULSE 64
[2017-09-14] MEDS: LACTOBACILLUS ACIDOPHILUS 1 TABLET PO SCH (09:57)
[2017-09-14] MEDS: ALLOPURINOL 100 MG TABLET (FP) PO SCH (09:57)
[2017-09-14] MEDS: ENOXAPARIN NA (PORCINE) 40 MG/0.4 ML DISP.SYRIN SQ SCH (09:58)
--- NOTE | 2017-09-14 11:16 | DS ---
Physical Examination Vital Signs: Vital Signs Temperature 97.7 F 09/14/17 06:21 Pulse Rate 64 09/14/17 06:21 Respiratory Rate 18 09/14/17 06:21 Blood Pressure 115/70 09/14/17 06:21 O2 Sat by Pulse Oximetry (%) 98 09/13/17 21:00 Constitutional: Yes: No Distress, Calm Neck: Yes: Other (decreased erythema in left side of neck, soft , supple, decreased induration) Cardiovascular: Yes: Regular Rate and Rhythm Respiratory: Yes: CTA Bilaterally Gastrointestinal: Yes: Normal Bowel Sounds, Soft. No: Tenderness Edema: No Labs: CBC, BMP 09/11/17 06:00 09/11/17 06:00 Discharge Summary Reason For Visit: CELLUITIS Current Active Problems Cellulitis (Acute) Neck pain (Acute) Hospital Course: Admitted for cellulitis of neck - he failed outpt antibiotics therapy-- blood cultures negative Seen by ID- placed on iv antibiotics Lyme titer pending CBC stable No elevated WBC pt stable for dc home Condition: Good - Instructions Referrals: Tootie Navas MD [Primary Care Provider] - Disposition: HOME - Home Medications Comprehensive Discharge Medication List: Ambulatory Orders Allopurinol [Zyloprim -] 200 mg PO DAILY 04/27/17 Mag Carb/Aluminum Hydrox/Algin [Gaviscon Liquid] 15 - 30 ml PO Q6H PRN #355 oz 04/28/17 Pantoprazole Sodium [Protonix] 40 mg PO HS #1 tablet. 04/28/17 Pantoprazole Sodium [Protonix] 40 mg PO HS #90 tablet. 04/28/17
[2017-09-14 11:32] VITALS: BP 137/77; TEMP 98.3
[2017-09-14 14:15] LABS: IgG Ab 23 kDa Band Absent (.); IgG Ab 28 kDa Band Absent (.)
== END 2017-09-14 12:26 | disposition home or self-care (01) | DRG 603 ==
LOC: JER 14:21 → JERBED 15:01 → J7W 17:15
PROVIDERS: ADMIT Internal Medicine; ATTEND Internal Medicine
DX: L03.221 Cellulitis of neck (principal); M54.2 Cervicalgia; R50.9 Fever, unspecified
CPT/HCPCS: 36415; 70491-TC; 71046-TC-FY; 80053; 83735; 85025; 85610; 85651; 86141; 86618; 87040; 93005; 93010; 99283-25

== ENCOUNTER → 2021-06-23 | Day surgery (SDC) | payer OTHER | END | disposition home or self-care (01) | LOC: JRADIR 10:43 | PROVIDERS: ATTEND Internal Medicine | PROC: 0G9H3ZX Drainage of Right Thyroid Gland Lobe, Percutaneous Approach, Diagnostic (ICD-10-PCS; principal; 2021-06-23) | DX: E04.1 Nontoxic single thyroid nodule (principal) | CPT/HCPCS: 10005; 76942; 88173; 88305-TC ==

== ENCOUNTER 2022-12-16 04:57 | Day surgery (SDC) | payer OTHER ==
[2022-12-14 10:38] VITALS: BMI 29.2
[2022-12-16 08:15] VITALS: RESP 16
[2022-12-16 09:57] VITALS: BP 116/79; PULSE 70
[2022-12-16 11:59] VITALS: TEMP 97.8
== END 2022-12-16 10:01 | disposition home or self-care (01) ==
LOC: JASU-ENDO 04:57
PROVIDERS: ATTEND Internal Medicine Gastroenterology
PROC: 0DBL8ZX Excision of Transverse Colon, Via Natural or Artificial Opening Endoscopic, Diagnostic (ICD-10-PCS; 2022-12-16)
PROC: 0DBP8ZX Excision of Rectum, Via Natural or Artificial Opening Endoscopic, Diagnostic (ICD-10-PCS; 2022-12-16)
PROC: 0DBH8ZX Excision of Cecum, Via Natural or Artificial Opening Endoscopic, Diagnostic (ICD-10-PCS; 2022-12-16)
PROC: 0DB98ZX Excision of Duodenum, Via Natural or Artificial Opening Endoscopic, Diagnostic (ICD-10-PCS; 2022-12-16)
PROC: 0DB78ZX Excision of Stomach, Pylorus, Via Natural or Artificial Opening Endoscopic, Diagnostic (ICD-10-PCS; 2022-12-16)
PROC: 0DB68ZX Excision of Stomach, Via Natural or Artificial Opening Endoscopic, Diagnostic (ICD-10-PCS; 2022-12-16)
PROC: 0DB48ZX Excision of Esophagogastric Junction, Via Natural or Artificial Opening Endoscopic, Diagnostic (ICD-10-PCS; 2022-12-16)
PROC: 0DBK8ZX Excision of Ascending Colon, Via Natural or Artificial Opening Endoscopic, Diagnostic (ICD-10-PCS; principal; 2022-12-16 09:00)
DX: Z12.11 Encounter for screening for malignant neoplasm of colon (principal); D12.0 Benign neoplasm of cecum; D12.2 Benign neoplasm of ascending colon; D12.3 Benign neoplasm of transverse colon; D12.8 Benign neoplasm of rectum; K21.00 Gastro-esophageal reflux disease with esophagitis, without bleeding; K22.10 Ulcer of esophagus without bleeding; K31.7 Polyp of stomach and duodenum; K29.70 Gastritis, unspecified, without bleeding; K29.80 Duodenitis without bleeding; Z86.010 Personal history of colon polyps; Z83.719 Family history of colon polyps, unspecified
CPT/HCPCS: 88305-TC; 88312-TC; 88342-TC